=== PATIENT | male | born 1980 | race Caucasian/White ===

== ENCOUNTER 2016-06-14 10:45 | Emergency (ER) | payer OTHER ==
[2016-06-14 10:53] VITALS: BP 138/92
--- NOTE | 2016-06-14 11:38 | PROVIDER DOCUMENTATION ---
HPI-Work Related Injury - General Source: patient - History of Present Illness-Work Injury Location of Pain/Injury: reports: face (L temporal and eye) Pain Radiation: reports: no radiation Quality of Pain: reports: aching Severity: reports: mild Onset/Duration: reports: 24 hours ago Timing: reports: still present, intermittent Modifying Factors: improves with: nothing Associated Symptoms: reports: denies symptoms Similar Symptoms Previously?: Yes Recently seen or treated by another doctor?: No <Sara Unger - Last Filed: 06/14/16 12:32> <Janna Jin - Last Filed: 06/14/16 13:30> - General Chief Complaint: Eye Injury Stated Complaint: EYE INJURY Time Seen by Provider: 06/14/16 11:23 Allergies/Adverse Reactions: Patient Allergies Allergy/AdvReac Type Severity Reaction Status Date / Time No Known Allergies Allergy Verified 06/14/16 10:52 Home Medications: Home Medication List Medication Instructions Recorded Confirmed Last Taken Type Cephalexin [Keflex] 500 mg PO BID #20 capsule 06/14/16 Unknown Rx Gentamicin 0.3% Oph Drops 2 drop OPH TID #1 bottle 06/14/16 Unknown Rx Hydrocodone/APAP 7.5 mg/325 mg 1 each PO TID #10 tablet 06/14/16 Unknown Rx [Limon-7.5] - History of Present Illness-Work Injury Nature of PresentingProblem: Pt is 35 y/o M presents to the ED with L eye injury. Pt states was at work and a metal bar hit him in the face. Pt states brief black vision. Pt denies LOC. Pt denies vision changes now. Pt denies pain. (Sara Unger) Review of Systems - Adult - REVIEW OF SYSTEMS - ADULT Constitutional: denies: chills, fever Eyes: denies: blurred vision, double vision Ears, Nose, Mouth & Throat: denies: ear pain, nose pain, throat pain Cardiovascular: denies: chest pain, heart murmur, irregular heart rate Respiratory: denies: cough, shortness of breath, wheezing Gastrointestinal: denies: abdominal pain, diarrhea, nausea, vomiting Genitourinary: denies: dysuria, hematuria Musculoskeletal: denies: bone pain, joint pain, neck pain Integumentary: denies: hives, itching Neurological: denies: dizziness/vertigo, headache/migraines Psychiatric: reports: no symptoms reported Endocrine: reports: no symptoms reported Hematologic/Lymphatic: reports: no symptoms reported Allergic/Immunologic: reports: no symptoms reported All Other Systems: Reviewed and Negative <Annabel Ungeromi - Last Filed: 06/14/16 12:32> Past History - Adult - PAST MEDICAL HISTORY-ADULT Review of Records: reports: Nursing Assessment Review, Medications Reviewed, Social history reviewed & non-contributory. Major Childhood Illnesses: reports: denies history Cardiovascular: reports: denies history Respiratory: reports: denies history Gastrointestinal: reports: denies history Obstetrical/Gynecological: reports: denies history Genitourinary: reports: denies history Musculoskeletal: reports: denies history Neurological: reports: denies history Endocrine/Immune: reports: denies history Other Conditions: reports: denies history - PRIOR SURGERIES/PROCEDURES Surgical/Procedure History: reports: reviewed, not pertinent - IMMUNIZATION STATUS Childhood Immunizations: See Nurse Assessment Flu Vaccine: See Nurse Assessment - FAMILY HISTORY Family History: reviewed, not pertinent - SOCIAL HISTORY Smoking: cigarettes, less than 1 pack/day Provider spent 3-5 mins advising pt. on dangers of tobacco.: Discussed manners to quit use, and f/u contacts for add'l counseling. Substance Use: denies Living Situation: family <Annabel Ungeromi - Last Filed: 06/14/16 12:32> Physical Exam-Injury Related - Physical Exam-Injury Related Initial Vital Signs Reviewed: Yes General Appearance: appears well, alert, no apparent distress Eyes: PERRL/EOMI, pink conjunctivae, other (ecchymosis noted to upper and lower lids). negative: photophobia, sclera injected Head, Ears, Nose, Mouth & Throat: normocephalic/atraumatic, moist mucous membranes, TMs normal, pharynx normal Respiratory: lungs clear, normal breath sounds Cardiovascular: normal peripheral pulses, regular rate, rhythm Abdominal Exam: non tender, soft <Janna Jin - Last Filed: 06/14/16 13:30> Progress - REASSESSMENT Reassessment #1 Time Reassessed: 12:32 (Belgica Jin at beside with Pt ) Status: unchanged (RICO Fong, discussed results to Pt and Pt states he understands results and will follow up with ENT.) - CT/MRI 1 CT Study: Head Impression: Normal CT Results: no intracranial injury. 2 CT Study: Facial Bones Impression: Abnormal (? penetrating injury. no retrobulbar abnormality.) CT Results: left lateral orbital wall fx with ST gas. <Sara Unger - Last Filed: 06/14/16 12:32> - CONSULTS/PCP/HOSPITALIST Notification #1 *Consult/PCP/Hospitalist*: Dr. Silva's office Time Discussed: 13:15 Reason/Comments: Lt orbit fracture, recommended to follow-up with ophthalmology <Janna Jin - Last Filed: 06/14/16 13:30> - PLAN OF CARE/RESULTS Progress/Plan/Lab Results: Orders Category Date Time Status HEAD W/O CONTRAST [CT] Stat Exams 06/14/16 11:30 Ordered Vital Signs - 24 hr 06/14/16 10:49 Temperature 98.1 F Pulse Rate 90 Respiratory 18 Rate Blood Pressure 138/92 O2 Sat by Pulse 99 Oximetry Laboratory Tests 06/14/16 12:04 WBC 10.32 RBC 5.12 Hgb 16.5 Hct 47.0 MCV 91.8 MCH 32.2 H MCHC 35.1 RDW Std Deviation 12.0 Plt Count 288 MPV 10.8 H Immature Gran % (Auto) 0.2 Neut % (Auto) 58.2 Lymph % (Auto) 30.9 Taylor % (Auto) 8.1 Eos % (Auto) 2.3 Baso % (Auto) 0.3 Immature Gran # (Auto) 0.02 Neut # (Auto) 6.00 Lymph # (Auto) 3.19 Taylor # (Auto) 0.84 H Eos # (Auto) 0.24 Baso # (Auto) 0.03 (Sara Unger) Discussed patient's care with Dr. Rosario, recommended to discharge patient with follow-up ENT tomorrow. 1325: spoke with patient's spouse via telephone verbalized that MLP had spoken with Dr. Silva's office and ENT recommended follow-up with Ophthalmology, foote verbalized understanding (Janna Jin) Procedures - EYE PROCEDURES Alcaine Drops Administered: Yes Eye(s) Irrigated?: Yes Gopal Lens Used for Irrigation?: No Eye Exam: Fluorescein Strip, Wood's Lamp Antibiotic Oinment/Drops Admininstered: Given as Rx Procedure Comment: no foreign body observed <Janna Jin - Last Filed: 06/14/16 13:30> Departure <Sara Unger - Last Filed: 06/14/16 12:32> - Departure Time of Disposition Order: 13:08 Certified Medical Emergency: Emergent <Janna Jin - Last Filed: 06/14/16 13:30> - Departure DIAGNOSIS: Left orbit fracture Qualifiers: Encounter type: initial encounter Fracture type: closed Qualified Code(s): S02.82XA - Fracture of other specified skull and facial bones, left side, initial encounter for closed fracture Disposition: HOME 01 Condition: Stable Additional Instructions: Medications as directed Call [facility] ophthalmology tomorrow ED Follow Up Instructions: You have been treated by a care provider in the Emergency Department. These instructions are being provided to you so you can have an understanding of how to care for yourself upon discharge. Upon discharge from the Emergency Department, you are responsible for making arrangements for follow-up care by a physician of your choice. Take all prescribed medications as directed. Return to the Emergency Department immediately for any new or worsening symptoms. You may call the Physician Referral phone number at [phone] to obtain a list of Physicians who are taking new patients. Prescriptions: Gentamicin 0.3% Oph Drops 2 drop OPH TID #1 bottle Cephalexin [Keflex] 500 mg PO BID #20 capsule Hydrocodone/APAP 7.5 mg/325 mg [Limon-7.5] 1 each PO TID #10 tablet Referrals: Juice Holcomb MD [Primary Care Provider] - Forms: Return to School/Parent Work Instructions: Orbital Floor Fracture, Non-Blowout, Acetaminophen; Hydrocodone tablets or capsules, Cephalexin tablets or capsules, Gentamicin eye drops Attestation - Scribe Verification/Attestation Scribe:: Sara Unger Acting as Scribe for:: Janna Jin Scribe documention review:: This chart was documented by a scribe and accurately reflects the service the provider performed and the decisions made by the provider. <Sara Unger - Last Filed: 06/14/16 12:32> Physician Attestation
[2016-06-14] MEDS ORDERED: PONTOCAINE 0.5% OPH SOLUTION OPH ONE (11:43)
[2016-06-14] MEDS ORDERED: PONTOCAINE 0.5% OPH SOLUTION ONE (11:44)
[2016-06-14] MEDS ORDERED: FLUORI-I-STRIP ONE (11:44)
[2016-06-14 12:09] LABS: MANUAL DIFF NEEDED? NO
[2016-06-14 12:11] LABS: BASO% 0.3 % (0.0-0.8); EOS# 0.24 X1000 (0.0-0.7); EOS% 2.3 % (0.0-10.0); HEMOGLOBIN 16.5 g/dL (14.0-18.0); IMM GRAN# 0.02 X1000 (0.0-0.04); IMM GRAN% 0.2 % (0.0-0.5); LYMPH# 3.19 X1000 (1.2-3.4); LYMPH% 30.9 % (20.5-51.1); MCH 32.2 PG (27-31); MCHC 35.1 g/dL (33-37); MCV 91.8 FL (81-99); MONO# 0.84 X1000 (0.11-0.59); MONO% 8.1 % (1.7-9.3); MPV 10.8 FL (7.4-10.4); NEUT% 58.2 % (42.2-75.2); PLT 288 X1000 (130-400); RBC 5.12 XMIL (4.7-6.1)
--- NOTE | 2016-06-14 12:19 | Diag Imaging Result Document ---
PROCEDURE NAME: HEAD W/O CONTRAST - 06/14/[address]: COMPARISON: None. FINDINGS: There is left periorbital soft tissue swelling. There is a left lateral orbital wall fracture as well as fracture of the zygomatic process. These are detailed more clearly on the facial bone CT. There is no intracranial mass or hemorrhage. The bony calvarium is intact. IMPRESSION: No intracranial injury.
[2016-06-14] MEDS ORDERED: DIPHTHERIA/TETANUS ADULT IM ONE (12:25)
--- NOTE | 2016-06-14 12:28 | Diag Imaging Result Document ---
PROCEDURE NAME: FACIAL BONES W/O CONTRAST - 06/14/2016 CT OF THE FACIAL BONES: FINDINGS: There is deviation of the nasal septum to the left. There are no air fluid levels in the paranasal sinuses. There is some fluid in the mastoid air cells on the right. There is a fracture of the lateral wall of the left orbit. There is gas in the left molding supervisor space and soft tissue swelling superficial to the globe and lateral to the orbit on the left. Impression: Fracture of left lateral orbital wall with soft tissue gas, possible penetrating injury. No retrobulbar abnormality. [facility]
[2016-06-14 12:30] LABS: AGAP 12; ALBUMIN 4.5 g/dL (3.5-5.0); ALKALINE PHOSPHATASE 77 U/L (32-122); BUN 7 mg/dL (8-22); CALCIUM 9.9 mg/dL (8.8-10.2); CHLORIDE 103 mmol/L (98-107); COSMO 278; GOT 16 U/L (10-34); GPT 24 U/L (10-44); POTASSIUM 3.9 mmol/L (3.5-5.1); SODIUM 140 mmol/L (136-145); TCO2 25 mmol/L (25-35); TOTAL PROTEIN 7.4 g/dL (6.3-8.3)
== END 2016-06-14 13:30 | disposition home or self-care (01) ==
LOC: P.ED 10:45
DX: S02.82XA Fracture of other specified skull and facial bones, left side, initial encounter for closed fracture (principal); S00.12XA Contusion of left eyelid and periocular area, initial encounter; H57.12 Ocular pain, left eye; R51 Headache; F17.210 Nicotine dependence, cigarettes, uncomplicated; Z23 Encounter for immunization; Z71.6 Tobacco abuse counseling; W22.8XXA Striking against or struck by other objects, initial encounter
CPT/HCPCS: 36415; 70450; 70486; 80053; 85025; 90714